=== PATIENT | female | born 1985 | race Hispanic/Latino ===

== ENCOUNTER 2023-12-23 11:48 | Inpatient (IN) | payer OTHER ==
[~2023-12-23] VITALS: Ht 157.5 cm; Wt 81.6 kg
[2023-12-23 12:43] LABS: BASOPHILS # (AUTO) 0.03 K/uL (0.00-0.20); BASOPHILS % (AUTO) 0.5 % (0.0-5.0); EOSINOPHILS # (AUTO) 0.09 K/uL (0.00-0.70); EOSINOPHILS % (AUTO) 1.6 % (0.0-8.0); IMMATURE GRANULOCYTE ABSOLUTE 0.02 K/uL (0-1); LYMPHOCYTES # (AUTO) 1.4 K/uL (1.0-4.8); LYMPHOCYTES % (AUTO) 24.8 % (21.0-51.0); MEAN CORPUSCULAR HEMOGLOBIN 13.2 pg (27.0-33.0); MEAN CORPUSCULAR HGB CONC 23.8 g/dL (32.0-36.0); MEAN CORPUSCULAR VOLUME 55.5 fL (79-99); MONOCYTES # (AUTO) 0.6 K/uL (0.1-1.0); MONOCYTES % (AUTO) 9.8 % (3.0-13.0); NEUTROPHILS # (AUTO) 3.6 K/uL (1.8-7.7); NEUTROPHILS % (AUTO) 62.9 % (40.0-77.0); NUCLEATED RED BLOOD CELLS 1.1 % (0.0-0.19); PLATELET COUNT (AUTO) 546 K/uL (130-400); RED BLOOD CELL COUNT(AUTO) 3.71 MIL/uL (4.00-5.50); RED CELL DISTRIBUTION WIDTH 21.5 % (11.0-15.5); WHITE BLOOD COUNT (AUTO) 5.6 K/uL (4.8-10.8)
[2023-12-23 12:55] LABS: HEMATOCRIT 20.6 % (36-48)
[2023-12-23 13:08] LABS: CREATININE 0.8 mg/dL (0.5-1.0); POTASSIUM 3.7 mmol/L (3.5-5.1)
[2023-12-23 13:13] LABS: ALBUMIN 3.3 g/dL (3.5-5.0); BILIRUBIN,TOTAL 0.4 mg/dL (0.2-1.0); TOTAL PROTEIN, SERUM 7.2 g/dL (6.0-8.3)
[2023-12-23 13:42] LABS: INR 0.98 (0.85-1.15); PARTIAL THROMBOPLASTIN TIME 21.8 SEC (26.3-35.5); PROTHROMBIN TIME 10.4 SEC (9.6-11.6)
[2023-12-23] MEDS ORDERED: ACETAMINOPHEN 500 MG TABLET PO PRN (15:00)
[2023-12-23] MEDS ORDERED: 0.9%NACL 1000ML 1,000 ML IV SCH ×2 (15:00)
[2023-12-23] MEDS ORDERED: PANTOPRAZOLE 40 MG/VIAL IVP SCH (15:00)
[2023-12-23] MEDS ORDERED: ONDANSETRON 4MG INJ IVP PRN (15:00)
[2023-12-23 15:32] LABS: RETICULOCYTE % (AUTO) 2.74 % (0.42-2.23)
[2023-12-23 16:22] LABS: HEMOGLOBIN A1C 5.3 % (4.0-6.0)
[2023-12-23 16:22] LABS: APPEARANCE,URINE CLOUDY (CLEAR); BILIRUBIN,URINE NEGATIVE (NEGATIVE); COLOR,URINE LIGHT-YELLOW (YELLOW); GLUCOSE, URINE (UA) NEGATIVE (NEGATIVE); KETONES,URINE NEGATIVE (NEGATIVE); LEUKOCYTE ESTERASE ,URINE 75 Leu/uL (NEGATIVE); NITRATE,URINE NEGATIVE (NEGATIVE); OCCULT BLOOD,URINE NEGATIVE (NEGATIVE); PROTEIN,URINE NEGATIVE (NEGATIVE)
[2023-12-23 16:26] LABS: ADD UA MICROSCOPIC YES
[2023-12-23] MEDS: PANTOPRAZOLE 40 MG/VIAL IVP SCH (16:26)
[2023-12-23] MEDS: 0.9%NACL 1000ML 1,000 ML IV SCH (16:26)
[2023-12-23 16:31] LABS: BACTERIA,URINE RARE /HPF (None Seen); MUCUS,URINE RARE LPF (None Seen); SQUAMOUS EPITHELIAL CELL,UR MOD /HPF (0-2)
[2023-12-23 16:47] LABS: THYROID STIMULATING HORMONE 1.23 uIU/mL (0.36-3.74)
[2023-12-23] MEDS: CEFTRIAXONE 1G VIAL IVPB SCH (17:39)
[2023-12-23 20:00] VITALS: O2SAT 100
[2023-12-23] MEDS ORDERED: HYDRALAZINE 20MG/ML VIAL IV PRN (20:30)
[2023-12-23 20:44] VITALS: BP 140/86; PULSE 78; RESP 20
[2023-12-23 20:51] LABS: HEMATOCRIT 27.4 % (36-48)
[2023-12-23 22:11] LABS: % IRON SATURATION 1.8 % (22-44)
[2023-12-23] MEDS: ACETAMINOPHEN 500 MG TABLET PO PRN (23:16)
[2023-12-23 23:53] VITALS: BP 137/87; PULSE 67; RESP 19
[2023-12-24] VITALS (7 sets, daily range): BP systolic 126–145; BP diastolic 62–98; PULSE 65–81; RESP 16–20; O2SAT 100
[2023-12-24 03:25] LABS: BASOPHILS # (AUTO) 0.05 K/uL (0.00-0.20); BASOPHILS % (AUTO) 0.7 % (0.0-5.0); EOSINOPHILS # (AUTO) 0.15 K/uL (0.00-0.70); EOSINOPHILS % (AUTO) 2.1 % (0.0-8.0); HEMATOCRIT 27.3 % (36-48); IMMATURE GRANULOCYTE ABSOLUTE 0.03 K/uL (0-1); MEAN CORPUSCULAR HEMOGLOBIN 17.5 pg (27.0-33.0); MEAN CORPUSCULAR HGB CONC 27.5 g/dL (32.0-36.0); MEAN CORPUSCULAR VOLUME 63.6 fL (79-99); MONOCYTES # (AUTO) 0.7 K/uL (0.1-1.0); MONOCYTES % (AUTO) 10.2 % (3.0-13.0); NEUTROPHILS # (AUTO) 4.4 K/uL (1.8-7.7); NEUTROPHILS % (AUTO) 59.6 % (40.0-77.0); PLATELET COUNT (AUTO) 450 K/uL (130-400); RED BLOOD CELL COUNT(AUTO) 4.29 MIL/uL (4.00-5.50); RED CELL DISTRIBUTION WIDTH 28.2 % (11.0-15.5); WHITE BLOOD COUNT (AUTO) 7.3 K/uL (4.8-10.8)
[2023-12-24 03:43] LABS: BILIRUBIN,TOTAL 0.5 mg/dL (0.2-1.0); CREATININE 0.7 mg/dL (0.5-1.0); MAGNESIUM 1.7 mg/dL (1.80-2.40); POTASSIUM 3.8 mmol/L (3.5-5.1); TOTAL PROTEIN, SERUM 6.8 g/dL (6.0-8.3)
[2023-12-24] MEDS ORDERED: POTASSIUM CHLORIDE 20MEQ/100ML 100 ML IV PRN (05:30)
[2023-12-24] MEDS ORDERED: KCL 20 MEQ ERTAB PO PRN (05:30)
[2023-12-24] MEDS ORDERED: POTASSIUM CHLORIDE 10% ELIXIR 20 MEQ/15 ML UDCUP PO PRN (05:30)
[2023-12-24] MEDS: KCL 20 MEQ ERTAB PO ONE (05:44)
[2023-12-24] MEDS: MAGNESIUM 2GM PREMIX 50ML 50 ML IV PRN (05:44)
[2023-12-24] MEDS: IRON SUCROSE COMPLEX 300 MG in 0.9% NACL 250ML 250 ML IV SCH (09:00)
[2023-12-24] MEDS ORDERED: COMPOUND IV MISC 1 EACH IVSOLN MISC PRN (12:00)
[2023-12-24] MEDS ORDERED: COMPOUND IV REFRIGERATED 1 EACH IVSOLN MISC PRN (12:00)
[2023-12-25 00:20] VITALS: BP 122/71; PULSE 68; RESP 18
[2023-12-25 03:25] VITALS: BP 124/64; PULSE 62; RESP 18
[2023-12-25 03:48] LABS: BASOPHILS # (AUTO) 0.04 K/uL (0.00-0.20); BASOPHILS % (AUTO) 0.6 % (0.0-5.0); EOSINOPHILS # (AUTO) 0.19 K/uL (0.00-0.70); EOSINOPHILS % (AUTO) 2.7 % (0.0-8.0); HEMATOCRIT 29.1 % (36-48); IMMATURE GRANULOCYTE ABSOLUTE 0.01 K/uL (0-1); LYMPHOCYTES % (AUTO) 28.4 % (21.0-51.0); MEAN CORPUSCULAR HEMOGLOBIN 17.3 pg (27.0-33.0); MEAN CORPUSCULAR HGB CONC 27.5 g/dL (32.0-36.0); MEAN CORPUSCULAR VOLUME 62.9 fL (79-99); MONOCYTES # (AUTO) 0.8 K/uL (0.1-1.0); MONOCYTES % (AUTO) 11.1 % (3.0-13.0); NEUTROPHILS % (AUTO) 57.1 % (40.0-77.0); NUCLEATED RED BLOOD CELLS 0.6 % (0.0-0.19); PLATELET COUNT (AUTO) 469 K/uL (130-400); RED BLOOD CELL COUNT(AUTO) 4.63 MIL/uL (4.00-5.50); RED CELL DISTRIBUTION WIDTH 28.9 % (11.0-15.5)
[2023-12-25 04:00] LABS: CREATININE 0.7 mg/dL (0.5-1.0); POTASSIUM 3.9 mmol/L (3.5-5.1)
[2023-12-25 07:00] VITALS: BP 124/74; PULSE 74; RESP 20
[2023-12-25 08:05] VITALS: O2SAT 98
[2023-12-25 11:00] VITALS: BP 121/72; PULSE 67; RESP 20
[2023-12-25] MEDS ORDERED: LEVO-70 PO (11:54)
[2023-12-25] MEDS ORDERED: FERR325T22 PO (11:54)
[2023-12-25 12:29] VITALS: BP 140/83; PULSE 70; RESP 18
== END 2023-12-25 14:48 | disposition home or self-care (01) | DRG 812 ==
LOC: EDH 11:48 → EDHIP 14:25 → 2DH 20:10 → 3CH 12-25 12:06
PROVIDERS: ADMIT Internal Medicine; ATTEND Internal Medicine
PROC: 30233N1 Transfusion of Nonautologous Red Blood Cells into Peripheral Vein, Percutaneous Approach (ICD-10-PCS; principal; 2023-12-23)
DX: D50.8 Other iron deficiency anemias (principal); N39.0 Urinary tract infection, site not specified; E11.65 Type 2 diabetes mellitus with hyperglycemia; N92.0 Excessive and frequent menstruation with regular cycle; E66.9 Obesity, unspecified; D75.839 Thrombocytosis, unspecified; I10 Essential (primary) hypertension; Z98.51 Tubal ligation status; Z68.32 Body mass index [BMI] 32.0-32.9, adult
CPT/HCPCS: 36415; 71045; 76857; 80048; 80053; 81001; 82607; 82728; 82746; 83036; 83540; 83550; 83615; 83735; 83880; 84439; 84443; 84481; 84484; 85014; 85018; 85025; 85045; 85610; 85730; 86850; 86880; 86900; 86901; 86923; 87086; 87186; 93005; 96375; 99291; C9113; G0378; J0696; J1756; J3475; J7050; P9016

== ENCOUNTER 2023-12-28 16:28 | Inpatient (IN) | payer OTHER ==
[~2023-12-28] VITALS: Ht 157.5 cm; Wt 81.6 kg
[~2023-12-28 16:28] MED LIST: FERR325T22 PO; LEVO-70 PO
[2023-12-28 16:59] LABS: BASOPHILS # (AUTO) 0.04 K/uL (0.00-0.20); BASOPHILS % (AUTO) 0.4 % (0.0-5.0); EOSINOPHILS # (AUTO) 0.14 K/uL (0.00-0.70); EOSINOPHILS % (AUTO) 1.4 % (0.0-8.0); HEMATOCRIT 34.2 % (36-48); IMMATURE GRANULOCYTE ABSOLUTE 0.03 K/uL (0-1); LYMPHOCYTES # (AUTO) 1.7 K/uL (1.0-4.8); LYMPHOCYTES % (AUTO) 16.5 % (21.0-51.0); MEAN CORPUSCULAR HEMOGLOBIN 18.3 pg (27.0-33.0); MEAN CORPUSCULAR HGB CONC 27.8 g/dL (32.0-36.0); MEAN CORPUSCULAR VOLUME 65.8 fL (79-99); MONOCYTES # (AUTO) 1.1 K/uL (0.1-1.0); MONOCYTES % (AUTO) 11.1 % (3.0-13.0); NEUTROPHILS # (AUTO) 7.1 K/uL (1.8-7.7); NEUTROPHILS % (AUTO) 70.3 % (40.0-77.0); PLATELET COUNT (AUTO) 433 K/uL (130-400); RED CELL DISTRIBUTION WIDTH 32.2 % (11.0-15.5)
[2023-12-28 17:27] LABS: CREATININE 0.6 mg/dL (0.5-1.0); POTASSIUM 3.9 mmol/L (3.5-5.1)
[2023-12-28 19:35] LABS: INR 0.95 (0.85-1.15); PROTHROMBIN TIME 10.3 SEC (9.6-11.6)
[2023-12-28 19:36] LABS: PARTIAL THROMBOPLASTIN TIME 26.6 SEC (26.3-35.5)
[2023-12-28 20:20] LABS: APPEARANCE,URINE CLOUDY (CLEAR); BILIRUBIN,URINE NEGATIVE (NEGATIVE); COLOR,URINE YELLOW (YELLOW); GLUCOSE, URINE (UA) NEGATIVE (NEGATIVE); KETONES,URINE NEGATIVE (NEGATIVE); LEUKOCYTE ESTERASE ,URINE 75 Leu/uL (NEGATIVE); NITRATE,URINE NEGATIVE (NEGATIVE); OCCULT BLOOD,URINE NEGATIVE (NEGATIVE); PH,URINE 5.5 (5.0-8.0); PROTEIN,URINE 20 mg/dL (NEGATIVE); UROBILINOGEN,URINE 0.2 mg/dL (0.2-1.0)
[2023-12-28 20:21] LABS: HCG,QUALITATIVE URINE NEGATIVE (NEGATIVE)
[2023-12-28 20:24] LABS: ADD UA MICROSCOPIC YES
[2023-12-28 20:29] LABS: MUCUS,URINE MANY LPF (None Seen); SQUAMOUS EPITHELIAL CELL,UR MANY /HPF (0-2)
[2023-12-28] MEDS: ENOXAPARIN SODIUM 80 MG/0.8 ML SQ ONE (20:59)
[2023-12-28] MEDS ORDERED: ONDANSETRON 4MG INJ IV PRN (21:30)
[2023-12-28] MEDS ORDERED: KCL 20 MEQ ERTAB PO PRN (21:30)
[2023-12-28] MEDS ORDERED: CEFTRIAXONE 1G VIAL 1 GM in 0.9%NACL 50ML 50 ML IV SCH (21:30)
[2023-12-28] MEDS ORDERED: ACETAMINOPHEN 325 MG TAB PO PRN ×2 (21:30)
[2023-12-28] MEDS ORDERED: POTASSIUM CHLORIDE 10% ELIXIR 20 MEQ/15 ML UDCUP PO PRN (21:30)
[2023-12-28] MEDS ORDERED: HYDRALAZINE 20MG/ML VIAL IV PRN (21:30)
[2023-12-28] MEDS ORDERED: MAGNESIUM 2GM PREMIX 50ML 50 ML IV PRN (21:30)
[2023-12-28] MEDS ORDERED: POTASSIUM CHLORIDE 20MEQ/100ML 100 ML IV PRN (21:30)
[2023-12-28] MEDS: CEFTRIAXONE 1G VIAL IVPB SCH (21:52)
[2023-12-28 22:45] VITALS: O2SAT 98
[2023-12-28 23:00] VITALS: BP 151/96; PULSE 92; RESP 19
[2023-12-29] VITALS (7 sets, daily range): BP systolic 112–135; BP diastolic 57–72; PULSE 70–81; RESP 18–20; O2SAT 97–98
[2023-12-29 05:40] LABS: BASOPHILS # (AUTO) 0.03 K/uL (0.00-0.20); BASOPHILS % (AUTO) 0.4 % (0.0-5.0); EOSINOPHILS # (AUTO) 0.21 K/uL (0.00-0.70); EOSINOPHILS % (AUTO) 2.5 % (0.0-8.0); HEMATOCRIT 31.3 % (36-48); IMMATURE GRANULOCYTE ABSOLUTE 0.02 K/uL (0-1); LYMPHOCYTES # (AUTO) 1.9 K/uL (1.0-4.8); LYMPHOCYTES % (AUTO) 23.1 % (21.0-51.0); MEAN CORPUSCULAR HEMOGLOBIN 18.3 pg (27.0-33.0); MEAN CORPUSCULAR HGB CONC 27.5 g/dL (32.0-36.0); MEAN CORPUSCULAR VOLUME 66.7 fL (79-99); MONOCYTES % (AUTO) 12.4 % (3.0-13.0); NEUTROPHILS # (AUTO) 5.1 K/uL (1.8-7.7); NEUTROPHILS % (AUTO) 61.4 % (40.0-77.0); PLATELET COUNT (AUTO) 383 K/uL (130-400); RED BLOOD CELL COUNT(AUTO) 4.69 MIL/uL (4.00-5.50); RED CELL DISTRIBUTION WIDTH 33.1 % (11.0-15.5); WHITE BLOOD COUNT (AUTO) 8.4 K/uL (4.8-10.8)
[2023-12-29 06:01] LABS: ALBUMIN 3.1 g/dL (3.5-5.0); BILIRUBIN,TOTAL 0.3 mg/dL (0.2-1.0); CREATININE 0.7 mg/dL (0.5-1.0); MAGNESIUM 1.9 mg/dL (1.80-2.40); POTASSIUM 3.8 mmol/L (3.5-5.1); TOTAL PROTEIN, SERUM 7.4 g/dL (6.0-8.3)
[2023-12-29] MEDS: FAMOTIDINE 20MG TAB PO SCH (09:09)
[2023-12-29] MEDS: ENOXAPARIN SODIUM 80 MG/0.8 ML SQ SCH (09:11)
[2023-12-29 14:38] LABS: % IRON SATURATION 5.6 % (22-44)
[2023-12-29] MEDS: IRON SUCROSE COMPLEX 100 MG/5 ML VIAL IV ONE (20:12)
[2023-12-30 04:00] VITALS: BP 110/59; PULSE 78; RESP 19
[2023-12-30 05:31] LABS: HEMATOCRIT 31.1 % (36-48); MEAN CORPUSCULAR HEMOGLOBIN 18.4 pg (27.0-33.0); MEAN CORPUSCULAR HGB CONC 27.3 g/dL (32.0-36.0); MEAN CORPUSCULAR VOLUME 67.5 fL (79-99); PLATELET COUNT (AUTO) 346 K/uL (130-400); RED BLOOD CELL COUNT(AUTO) 4.61 MIL/uL (4.00-5.50)
[2023-12-30 06:13] LABS: CREATININE 0.6 mg/dL (0.5-1.0); POTASSIUM 3.7 mmol/L (3.5-5.1)
[2023-12-30 08:00] VITALS: BP 122/69; PULSE 71; RESP 18
[2023-12-30] MEDS: ASPIRIN 81MG CHEW TAB PO SCH (08:10)
[2023-12-30] MEDS: CYANOCOBALAMIN (VITAMIN B-12) 1,000 MCG TABLET PO SCH (08:10)
[2023-12-30 08:15] VITALS: O2SAT 99
[2023-12-30] MEDS ORDERED: ASPI-1005 PO (08:46)
[2023-12-30] MEDS ORDERED: CYAN-52 PO (08:46)
[2023-12-30] MEDS ORDERED: FOLI1 PO (08:46)
[2023-12-30] MEDS ORDERED: FOLIC ACID 1 MG TABLET PO SCH (09:00)
[2023-12-30 16:00] VITALS: BP 110/55; PULSE 64; RESP 18
== END 2023-12-30 11:30 | disposition home or self-care (01) | DRG 300 ==
LOC: EDH 16:28 → EDHIP 21:19 → 3BH 22:27
PROVIDERS: ADMIT Internal Medicine; ATTEND Internal Medicine
DX: I82.611 Acute embolism and thrombosis of superficial veins of right upper extremity (principal); L03.113 Cellulitis of right upper limb; N39.0 Urinary tract infection, site not specified; I10 Essential (primary) hypertension; D75.839 Thrombocytosis, unspecified; D25.9 Leiomyoma of uterus, unspecified; D64.9 Anemia, unspecified; E66.9 Obesity, unspecified; N92.0 Excessive and frequent menstruation with regular cycle; Z68.32 Body mass index [BMI] 32.0-32.9, adult
CPT/HCPCS: 36415; 73070; 80048; 80053; 81001; 81025; 83540; 83550; 83605; 83735; 85025; 85027; 85610; 85730; 87040; 87086; 93971; 96372; 99291; G0378; J0696; J1650; J1756